=== PATIENT | female | born 1990 | race Hispanic/Latino ===

== ENCOUNTER 2023-03-09 05:48 | Inpatient (IN) | payer MEDICAID, OTHER ==
[2023-03-06 15:26] LABS: Hemoglobin 12.3 g/dL (12.0-15.5); Platelet Count 208 10x3/uL (150-450)
[2023-03-06 15:58] LABS: Syphilis Antibody Nonreactive (Nonreactive); Syphilis Antibody Index 0.04 S/CO (<1.00 Non-Reactive)
[2023-03-06 15:59] LABS: HBSAg Index 0.18 S/CO (0-0.99); Hep B Surf Ag Non-Reactive S/CO (NonReactive)
[2023-03-09 06:13] VITALS: BMI 34.7
[2023-03-09] MEDS ORDERED: Carboprost 250 MCG/ML AMP IM PRN (06:48)
[2023-03-09] MEDS ORDERED: Misoprostol 200 MCG TAB PR PRN (06:48)
[2023-03-09] MEDS ORDERED: Methylergonovine 0.2 MG/ML VIAL IM PRN (06:48)
[2023-03-09] MEDS ORDERED: hydrALAZINE 20 MG/ML VIAL SLOW IVP PRN ×2 (06:48→11:46)
[2023-03-09] MEDS ORDERED: Famotidine/PF 20 mg/2ml Vial SLOW IVP PRN (06:48)
[2023-03-09] MEDS ORDERED: Promethazine HCl 25 MG/ML VIAL IM PRN ×3 (06:48→11:46)
[2023-03-09] MEDS ORDERED: NS w/ Oxytocin 30 units 500 ML IV SCH (06:48)
[2023-03-09] MEDS ORDERED: Lactated Ringer's 1,000 ML IV SCH (06:48)
[2023-03-09] MEDS ORDERED: Ondansetron PF 4 MG/2 ML Vial IVP PRN ×3 (06:48→11:46)
[2023-03-09] MEDS ORDERED: CEFAZOLIN 2 GM in Sodium Chloride 0.9% 100 ML IVPB SCH (06:48)
[2023-03-09] MEDS ORDERED: Diphenoxylate HCl/Atropine Tablet PO PRN (06:48)
[2023-03-09] MEDS ORDERED: Tranexamic Acid 1,000 MG/10 ML VIAL IVP PRN (06:48)
[2023-03-09] MEDS ORDERED: Bicitra 30 ML UDCUP PO PRN (06:48)
[2023-03-09] MEDS ORDERED: Naloxone HCl 0.4 mg/ml Vial IVP PRN ×2 (07:10)
[2023-03-09] MEDS ORDERED: Ondansetron HCl/PF 4 MG/2 ML Vial IVP PRN (07:10)
[2023-03-09] MEDS ORDERED: Naloxone HCl 0.4 mg/ml Vial IV PRN (07:10)
[2023-03-09] MEDS ORDERED: Fentanyl 100 MCG/2 ML VIAL SLOW IVP PRN (07:10)
[2023-03-09] MEDS ORDERED: diphenhydrAMINE 50 MG/ML VIAL IVP PRN (07:10)
[2023-03-09] MEDS ORDERED: Moisturizing Cream (Eucerin) 113 GM JAR TOP PRN (07:10)
[2023-03-09] MEDS ORDERED: Promethazine HCl 25 MG SUPP PR PRN (07:10)
[2023-03-09] MEDS ORDERED: Meperidine HCl/PF 25 MG/ML VIAL SLOW IVP PRN (07:10)
[2023-03-09] MEDS ORDERED: Communication Order-Pharmacy FS SCH (07:15)
[2023-03-09] MEDS ORDERED: PHENYLEPHRINE-NS 100 MCG/ML 10 ML SYRINGE ONE (07:21)
[2023-03-09] MEDS ORDERED: Phenylephrine 40 MG/NS 250 ML 500 ML ONE (07:21)
[2023-03-09] MEDS ORDERED: Morphine PF 10 MG/10 ML VIAL ONE (07:21)
[2023-03-09] MEDS ORDERED: Oxytocin 10 UNITS/ML VIAL ONE (07:21)
[2023-03-09] MEDS ORDERED: ePHEDrine Sulfate 50 MG/10 ML VIAL ONE (07:21)
[2023-03-09] MEDS ORDERED: Ketorolac Tromethamine 30 MG/ML VIAL ONE (07:21)
[2023-03-09] MEDS ORDERED: Ondansetron PF 4 MG/2 ML Vial ONE (07:21)
[2023-03-09] MEDS ORDERED: Carboprost 250 MCG/ML AMP ONE (07:24)
[2023-03-09] MEDS ORDERED: Misoprostol 200 MCG TAB ONE (07:24)
[2023-03-09] MEDS ORDERED: fentaNYL 50 mcg/mL 1 mL Vial ONE ×2 (08:12→08:16)
[2023-03-09] MEDS ORDERED: Boostrix 0.5 ML (Tdap) VIAL (>/=7 yrs of age) IM ONE (11:46)
[2023-03-09] MEDS ORDERED: Simethicone Chewable 80 MG TAB PO PRN (11:46)
[2023-03-09] MEDS ORDERED: Lanolin Ointment 7 GM TUBE TOP PRN (11:46)
[2023-03-09] MEDS ORDERED: diphenhydrAMINE 25 MG CAP PO PRN (11:46)
[2023-03-09] MEDS ORDERED: Bisacodyl 10 MG SUPP PR PRN (11:46)
[2023-03-09] MEDS ORDERED: Prenatal Vitamin 1 TAB PO SCH (12:00)
[2023-03-09] MEDS ORDERED: Docusate 100 MG CAP PO SCH (12:00)
[2023-03-09] MEDS ORDERED: Ferrous Sulfate 325 MG TAB PO SCH (12:00)
[2023-03-09] MEDS ORDERED: Ketorolac Tromethamine 30 MG/ML VIAL IVP SCH (14:25)
[2023-03-09] MEDS ORDERED: Ketorolac Tromethamine 30 MG/ML VIAL IVP PRN (14:30)
[2023-03-09] MEDS: Ketorolac Tromethamine 30 MG/ML VIAL IVP SCH ×2 (14:31→20:45)
[2023-03-09] MEDS ORDERED: Meperidine HCl/PF 25 MG/ML VIAL IM PRN (19:15)
[2023-03-09] MEDS: Ferrous Sulfate 325 MG TAB PO SCH (20:45)
[2023-03-09] MEDS: Docusate 100 MG CAP PO SCH (20:45)
[2023-03-10] MEDS: Ketorolac Tromethamine 30 MG/ML VIAL IVP SCH ×2 (03:30→08:29)
[2023-03-10 04:23] LABS: Hemoglobin 9.6 g/dL (12.0-15.5); Mean Corpuscular HGB CONC 32.8 g/dL (32.0-36.0); Mean Corpuscular Volume 88.5 fl (81.6-98.3); Mean Platelet Volume 11.2 fl (7.4-10.4); Platelet Count 159 10x3/uL (150-450); RBC Distribution Width 14.3 % (11.5-14.5); Red Blood Cell (RBC) Count 3.31 10x6/uL (3.90-5.03); White Blood Cell (WBC) Count 9.1 10x3/uL (3.5-10.5)
[2023-03-10] MEDS: Docusate 100 MG CAP PO SCH ×2 (08:30→21:08)
[2023-03-10] MEDS: Prenatal Vitamin 1 TAB PO SCH (08:30)
[2023-03-10] MEDS: Ferrous Sulfate 325 MG TAB PO SCH ×2 (08:30→21:08)
[2023-03-10] MEDS: Ibuprofen 800 MG TAB PO SCH ×2 (13:18→21:08)
[2023-03-10] MEDS: HYDROcodone/Acetaminophen 5/325 mg Tablet PO PRN (15:54)
[2023-03-11] MEDS: HYDROcodone/Acetaminophen 5/325 mg Tablet PO PRN ×2 (05:08→10:01)
[2023-03-11] MEDS: Ibuprofen 800 MG TAB PO SCH ×3 (06:07→21:32)
[2023-03-11] MEDS: Prenatal Vitamin 1 TAB PO SCH (08:37)
[2023-03-11] MEDS: Docusate 100 MG CAP PO SCH ×2 (08:37→21:32)
[2023-03-11] MEDS: Ferrous Sulfate 325 MG TAB PO SCH ×2 (08:37→21:32)
[2023-03-12] MEDS: Ibuprofen 800 MG TAB PO SCH ×2 (05:52→13:38)
[2023-03-12 07:43] VITALS: BP 113/75; TEMP 97.9
[2023-03-12] MEDS: Docusate 100 MG CAP PO SCH (07:56)
[2023-03-12] MEDS: Prenatal Vitamin 1 TAB PO SCH (07:57)
[2023-03-12] MEDS: Ferrous Sulfate 325 MG TAB PO SCH (07:57)
[2023-03-12] MEDS: HYDROcodone/Acetaminophen 5/325 mg Tablet PO PRN ×2 (07:57→13:38)
== END 2023-03-12 18:30 | disposition home or self-care (01) | DRG 788 ==
LOC: CSHLD 05:48 → CSHPP 10:47
PROVIDERS: ADMIT Family Medicine; ATTEND Family Medicine
PROC: 10D00Z1 Extraction of Products of Conception, Low, Open Approach (ICD-10-PCS; principal; 2023-03-09)
PROC: 3E033VJ Introduction of Other Hormone into Peripheral Vein, Percutaneous Approach (ICD-10-PCS; 2023-03-09)
DX: O24.420 Gestational diabetes mellitus in childbirth, diet controlled (principal); O34.211 Maternal care for low transverse scar from previous cesarean delivery; Z3A.39 39 weeks gestation of pregnancy; Z37.0 Single live birth
CPT/HCPCS: 36415; 51702; 85014; 85018; 85027; 85049; 86780; 86850; 86900; 86901; 87340; J1885; J2274; J2405; J2590; J3010; J3490